=== PATIENT | female | born 1995 | race Hispanic/Latino ===

== ENCOUNTER 2023-07-04 08:13 | Day surgery (SDC) | payer BC ==
[2023-07-02 10:07] VITALS: BMI 40.9
[2023-07-04] MEDS ORDERED: Oxymetazoline HCl 0.05% (30 ML BOT) ONE ×2 (08:34→11:03)
[2023-07-04] MEDS ORDERED: Lidocaine 1% (PF) 30 ML VIAL ONE (11:04)
[2023-07-04] MEDS ORDERED: fentaNYL PF 100 MCG/2 ML SYRINGE ONE ×2 (11:10→11:27)
[2023-07-04] MEDS ORDERED: PROPOFOL 20 ML ONE (11:25)
[2023-07-04] MEDS ORDERED: SUGAMMADEX SODIUM 200 MG/2 ML VIAL ONE (11:31)
[2023-07-04] MEDS ORDERED: Fentanyl 250 MCG/5 ML VIAL ONE (12:02)
[2023-07-04] MEDS ORDERED: HYDROcodone/Acetaminophen 5/325 mg Tablet ONE (12:57)
[2026-07-04] MEDS ORDERED: Rocuronium Bromide 10 MG/ML (10ML VIAL) ONE (11:17)
[2026-07-04] MEDS ORDERED: Ondansetron PF 4 MG/2 ML Vial ONE (11:17)
[2026-07-04] MEDS ORDERED: Dexamethasone 20 MG/5 ML VIAL ONE (11:17)
[2026-07-04] MEDS ORDERED: Ketorolac Tromethamine 30 MG (1 mL) VIAL ONE (11:17)
== END 2023-07-04 13:50 | disposition home or self-care (01) ==
LOC: SDC 08:13
PROVIDERS: ATTEND Otolaryngology Plastic Surgery within the Head & Neck
PROC: 09TV8ZZ Resection of Left Ethmoid Sinus, Via Natural or Artificial Opening Endoscopic (ICD-10-PCS; principal; 2023-07-04)
PROC: 09TL8ZZ Resection of Nasal Turbinate, Via Natural or Artificial Opening Endoscopic (ICD-10-PCS; principal; 2023-07-04)
PROC: 09TU8ZZ Resection of Right Ethmoid Sinus, Via Natural or Artificial Opening Endoscopic (ICD-10-PCS; principal; 2023-07-04)
DX: J34.3 Hypertrophy of nasal turbinates (principal); J32.8 Other chronic sinusitis; J33.0 Polyp of nasal cavity; J30.1 Allergic rhinitis due to pollen; J30.81 Allergic rhinitis due to animal (cat) (dog) hair and dander; J30.89 Other allergic rhinitis; Z79.899 Other long term (current) drug therapy
CPT/HCPCS: J1100; J1885; J2001; J2405; J2704; J3010

== ENCOUNTER 2025-03-10 07:53 | Outpatient (CLI) | payer OTHER ==
[2025-03-10 09:42] LABS: BHCG - Serum Negative (NEGATIVE); Pregs Control Background? CLEAR/WHITE (CLR/WHITE); Pregs Control Bar Appear? YES (CONTROL BAR)
== END 2025-03-10 07:54 | disposition home or self-care (01) ==
LOC: MRI 07:53
PROVIDERS: ATTEND Physician Assistant Medical
DX: K76.0 Fatty (change of) liver, not elsewhere classified (principal); R16.0 Hepatomegaly, not elsewhere classified; R10.11 Right upper quadrant pain; R14.0 Abdominal distension (gaseous); R93.5 Abnormal findings on diagnostic imaging of other abdominal regions, including retroperitoneum
CPT/HCPCS: 36415; 74183; 84703

== ENCOUNTER 2025-03-11 14:11 | Inpatient (IN) | payer OTHER ==
[2025-03-11 15:02] LABS: #Basophils 0.05 10x3/uL (0.0-0.2); #Eosinophils 0.20 10x3/uL (0.0-0.7); #Monocytes 0.68 10x3/uL (0.11-0.59); #Neutrophils 7.56 10x3/uL (1.40-6.50); %Basophils 0.5 % (0.0-1.0); %Eosinophils 1.9 % (0.0-10.0); %Lymphocytes 19.1 % (21.0-51.0); %Monocytes 6.5 % (0.0-10.0); %Neutrophils 71.6 % (42.0-75.0); Hematocrit 40.4 % (36.0-47.0); Hemoglobin 13.2 g/dL (12.0-16.0); Mean Corpuscular Hemoglobin 28.6 pg (27.0-31.0); Mean Corpuscular Volume 87.6 fL (78.0-98.0); Platelet Count 251 10x3/uL (130-400); Red Blood Cell (RBC) Count 4.61 mill/uL (4.20-5.40); White Blood Cell (WBC) Count 10.54 10x3/uL (4.8-10.8)
[2025-03-11 15:18] LABS: BHCG - Serum Negative (NEGATIVE); Pregs Control Background? CLEAR/WHITE (CLR/WHITE); Pregs Control Bar Appear? YES (CONTROL BAR)
[2025-03-11 15:24] LABS: ALT (SGPT) 152 U/L (Less than 34); AST (SGOT) 100 U/L (11-34); Albumin 4.0 g/dL (3.1-4.5); Alkaline Phosphatase 95 U/L (40-110); Anion Gap 15 mmol/L (10-20); BUN (Urea Nitrogen) 8 mg/dL (7.0-18.7); Bilirubin, Total 0.4 mg/dL (0.3-1.2); Calc. Creatinine Clearance 0 mL/min (70-130); Calcium 9.2 mg/dL (7.8-10.44); Carbon Dioxide 28 mmol/L (22-29); Chloride 101 mmol/L (98-107); Globulin 3.5 g/dL (2.4-3.5); Glucose 226 mg/dL (70-105); Potassium 4.0 mmol/L (3.5-5.1); Sodium 140 mmol/L (136-145)
[2025-03-11] MEDS ORDERED: Melatonin 3 MG TAB PO PRN (16:57)
[2025-03-11] MEDS ORDERED: Senokot S 8.6-50 MG TAB PO PRN (16:57)
[2025-03-11] MEDS ORDERED: Vancomycin 1 GM in Premix 1 BAG IVPB SCH (17:00)
[2025-03-11] MEDS ORDERED: diphenhydrAMINE 50 MG/ML VIAL ONE (17:25)
[2025-03-11 18:10] VITALS: BMI 44.6
[2025-03-11] MEDS ORDERED: Pharmacy to Dose: VANCOMYCIN IVPB PRN (18:28)
[2025-03-11] MEDS ORDERED: Vancomycin (BATCH) 1.75 GM Premix IVPB SCH (23:59)
[2025-03-12] MEDS: Vancomycin (BATCH) 2.5 GM in Premix 1 BAG IVPB SCH (01:14)
[2025-03-12 05:36] LABS: #Basophils 0.04 10x3/uL (0.0-0.2); #Eosinophils 0.15 10x3/uL (0.0-0.7); #Monocytes 0.56 10x3/uL (0.11-0.59); #Neutrophils 6.56 10x3/uL (1.40-6.50); %Basophils 0.4 % (0.0-1.0); %Eosinophils 1.5 % (0.0-10.0); %Lymphocytes 24.8 % (21.0-51.0); %Monocytes 5.7 % (0.0-10.0); %Neutrophils 67.2 % (42.0-75.0); Hematocrit 45.1 % (36.0-47.0); Hemoglobin 14.4 g/dL (12.0-16.0); Mean Corpuscular Hemoglobin 28.3 pg (27.0-31.0); Mean Corpuscular Volume 88.6 fL (78.0-98.0); Platelet Count 247 10x3/uL (130-400); Red Blood Cell (RBC) Count 5.09 mill/uL (4.20-5.40); White Blood Cell (WBC) Count 9.77 10x3/uL (4.8-10.8)
[2025-03-12 05:55] LABS: Anion Gap 13 mmol/L (10-20); BUN (Urea Nitrogen) 8 mg/dL (7.0-18.7); Calc. Creatinine Clearance 246 mL/min (70-130); Calcium 9.2 mg/dL (7.8-10.44); Carbon Dioxide 25 mmol/L (22-29); Chloride 104 mmol/L (98-107); Glucose 170 mg/dL (70-105); Potassium 3.7 mmol/L (3.5-5.1); Sodium 138 mmol/L (136-145)
[2025-03-12 06:55] LABS: INR-International Normal Ratio 1.0; PTT 35.0 sec (22.9-36.1); Prothrombin Time 13.3 sec (12.0-14.7)
[2025-03-13 06:32] LABS: #Basophils 0.03 10x3/uL (0.0-0.2); #Eosinophils 0.17 10x3/uL (0.0-0.7); #Monocytes 0.68 10x3/uL (0.11-0.59); #Neutrophils 6.51 10x3/uL (1.40-6.50); %Basophils 0.3 % (0.0-1.0); %Eosinophils 1.7 % (0.0-10.0); %Lymphocytes 24.4 % (21.0-51.0); %Monocytes 6.9 % (0.0-10.0); %Neutrophils 66.4 % (42.0-75.0); Hematocrit 43.5 % (36.0-47.0); Hemoglobin 14.4 g/dL (12.0-16.0); Mean Corpuscular Hemoglobin 28.9 pg (27.0-31.0); Mean Corpuscular Volume 87.2 fL (78.0-98.0); Platelet Count 295 10x3/uL (130-400); Red Blood Cell (RBC) Count 4.99 mill/uL (4.20-5.40); White Blood Cell (WBC) Count 9.81 10x3/uL (4.8-10.8)
[2025-03-13 06:46] LABS: ALT (SGPT) 126 U/L (Less than 34); AST (SGOT) 64 U/L (11-34); Albumin 4.0 g/dL (3.1-4.5); Alkaline Phosphatase 101 U/L (40-110); Anion Gap 16 mmol/L (10-20); BUN (Urea Nitrogen) 11 mg/dL (7.0-18.7); Bilirubin, Total 0.3 mg/dL (0.3-1.2); Calc. Creatinine Clearance 213 mL/min (70-130); Calcium 9.2 mg/dL (7.8-10.44); Carbon Dioxide 22 mmol/L (22-29); Chloride 102 mmol/L (98-107); Globulin 4.0 g/dL (2.4-3.5); Glucose 201 mg/dL (70-105); Potassium 4.1 mmol/L (3.5-5.1); Sodium 136 mmol/L (136-145)
[2025-03-13] MEDS ORDERED: Iopamidol 370 76% 100 ML VIAL ONE (15:41)
[2025-03-13] MEDS ORDERED: Lidocaine 1% w/Epinephrine 1:100K 20 ML VIAL ONE (15:44)
[2025-03-13] MEDS ORDERED: Sodium Bicarbonate 2.5 MEQ/5 ML SDV ONE (15:44)
[2025-03-13] MEDS ORDERED: Ondansetron PF 4 MG/2 ML Vial ONE (15:53)
[2025-03-13] MEDS: HYDROcodone/Acetaminophen 10/325 mg Tablet PO PRN (18:58)
[2025-03-13] MEDS: Ondansetron PF 4 MG/2 ML Vial IVP PRN (22:12)
[2025-03-14 06:45] LABS: #Basophils 0.03 10x3/uL (0.0-0.2); #Eosinophils 0.12 10x3/uL (0.0-0.7); #Monocytes 0.77 10x3/uL (0.11-0.59); #Neutrophils 6.07 10x3/uL (1.40-6.50); %Basophils 0.3 % (0.0-1.0); %Eosinophils 1.3 % (0.0-10.0); %Lymphocytes 22.0 % (21.0-51.0); %Monocytes 8.5 % (0.0-10.0); %Neutrophils 67.3 % (42.0-75.0); Hematocrit 42.4 % (36.0-47.0); Hemoglobin 13.3 g/dL (12.0-16.0); Mean Corpuscular Hemoglobin 28.0 pg (27.0-31.0); Mean Corpuscular Volume 89.3 fL (78.0-98.0); Platelet Count 233 10x3/uL (130-400); Red Blood Cell (RBC) Count 4.75 mill/uL (4.20-5.40); White Blood Cell (WBC) Count 9.02 10x3/uL (4.8-10.8)
[2025-03-14 07:10] LABS: ALT (SGPT) 119 U/L (Less than 34); AST (SGOT) 58 U/L (11-34); Albumin 3.9 g/dL (3.1-4.5); Alkaline Phosphatase 90 U/L (40-110); Anion Gap 12 mmol/L (10-20); BUN (Urea Nitrogen) 10 mg/dL (7.0-18.7); Bilirubin, Total 0.2 mg/dL (0.3-1.2); Calc. Creatinine Clearance 246 mL/min (70-130); Calcium 8.9 mg/dL (7.8-10.44); Carbon Dioxide 26 mmol/L (22-29); Chloride 102 mmol/L (98-107); Globulin 3.6 g/dL (2.4-3.5); Glucose 221 mg/dL (70-105); Potassium 3.9 mmol/L (3.5-5.1); Sodium 136 mmol/L (136-145)
[2025-03-14] MEDS: LISDEXAMFETAMINE DIMESYLATE 30 MG PO SCH (15:30)
[2025-03-15 05:58] LABS: #Basophils 0.04 10x3/uL (0.0-0.2); #Eosinophils 0.18 10x3/uL (0.0-0.7); #Monocytes 0.65 10x3/uL (0.11-0.59); #Neutrophils 5.23 10x3/uL (1.40-6.50); %Basophils 0.5 % (0.0-1.0); %Eosinophils 2.2 % (0.0-10.0); %Lymphocytes 24.2 % (21.0-51.0); %Monocytes 8.0 % (0.0-10.0); %Neutrophils 64.7 % (42.0-75.0); Hematocrit 40.0 % (36.0-47.0); Hemoglobin 12.6 g/dL (12.0-16.0); Mean Corpuscular Hemoglobin 28.4 pg (27.0-31.0); Mean Corpuscular Volume 90.1 fL (78.0-98.0); Platelet Count 239 10x3/uL (130-400); Red Blood Cell (RBC) Count 4.44 mill/uL (4.20-5.40); White Blood Cell (WBC) Count 8.09 10x3/uL (4.8-10.8)
[2025-03-15 06:32] LABS: ALT (SGPT) 88 U/L (Less than 34); AST (SGOT) 40 U/L (11-34); Albumin 3.6 g/dL (3.1-4.5); Alkaline Phosphatase 86 U/L (40-110); Anion Gap 11 mmol/L (10-20); BUN (Urea Nitrogen) 9 mg/dL (7.0-18.7); Bilirubin, Total 0.2 mg/dL (0.3-1.2); Calc. Creatinine Clearance 230 mL/min (70-130); Calcium 8.9 mg/dL (7.8-10.44); Carbon Dioxide 26 mmol/L (22-29); Chloride 104 mmol/L (98-107); Globulin 3.3 g/dL (2.4-3.5); Glucose 150 mg/dL (70-105); Potassium 4.0 mmol/L (3.5-5.1); Sodium 137 mmol/L (136-145)
[2025-03-17] MEDS ORDERED: Lidocaine 1% w/Epinephrine 1:100K 20 ML VIAL ONE (08:32)
[2025-03-17] MEDS ORDERED: Sodium Bicarbonate 2.5 MEQ/5 ML SDV ONE (08:32)
[2025-03-17 12:54] VITALS: BMI 44.6
[2025-03-17] MEDS: Mupirocin 1 GM TUBE NASAL DECOLONIZATION TP SCH (13:41)
[2025-03-17] MEDS: Mupirocin 1 GM TUBE NASAL DECOLOIZATION TP SCH (21:31)
[2025-03-19 19:28] VITALS: BP 117/76; TEMP 98.9
== END 2025-03-19 19:50 | disposition home or self-care (01) | DRG 442 ==
LOC: ERS 14:11 → T4-A 16:28
PROVIDERS: ADMIT Internal Medicine; ATTEND Hospitalist
PROC: 3E03329 Introduction of Other Anti-infective into Peripheral Vein, Percutaneous Approach (ICD-10-PCS; 2025-03-11)
PROC: 0F923ZZ Drainage of Left Lobe Liver, Percutaneous Approach (ICD-10-PCS; principal; 2025-03-13)
DX: K75.0 Abscess of liver (principal); S36.118A Other injury of liver, initial encounter; Z68.41 Body mass index [BMI] 40.0-44.9, adult; R73.03 Prediabetes; F43.10 Post-traumatic stress disorder, unspecified; E66.01 Morbid (severe) obesity due to excess calories; R74.01 Elevation of levels of liver transaminase levels; Z79.84 Long term (current) use of oral hypoglycemic drugs; Z88.8 Allergy status to other drugs, medicaments and biological substances; Z79.899 Other long term (current) drug therapy
CPT/HCPCS: 36415; 36416; 36573; 49405; 74178; 77002; 80048; 80053; 84703; 85025; 85610; 85730; 86141; 87040; 87070; 87205; 89051; 96365; 96367; 96375; C1751; C1894; J1200; J2250; J2543; J3373; Q9967

== ENCOUNTER 2025-03-24 23:46 | Inpatient (IN) | payer OTHER ==
[2025-03-25 00:45] LABS: #Basophils 0.03 10x3/uL (0.0-0.2); #Eosinophils 0.13 10x3/uL (0.0-0.7); #Monocytes 0.47 10x3/uL (0.11-0.59); #Neutrophils 5.45 10x3/uL (1.40-6.50); %Basophils 0.4 % (0.0-1.0); %Eosinophils 1.8 % (0.0-10.0); %Lymphocytes 16.3 % (21.0-51.0); %Monocytes 6.4 % (0.0-10.0); %Neutrophils 74.6 % (42.0-75.0); Hematocrit 42.3 % (36.0-47.0); Hemoglobin 13.9 g/dL (12.0-16.0); Mean Corpuscular Hemoglobin 28.5 pg (27.0-31.0); Mean Corpuscular Volume 86.9 fL (78.0-98.0); Platelet Count 216 10x3/uL (130-400); Red Blood Cell (RBC) Count 4.87 mill/uL (4.20-5.40); White Blood Cell (WBC) Count 7.31 10x3/uL (4.8-10.8)
[2025-03-25 00:58] LABS: INR-International Normal Ratio 1.1; Prothrombin Time 13.9 sec (12.0-14.7)
[2025-03-25 00:59] LABS: ALT (SGPT) 157 U/L (Less than 34); AST (SGOT) 117 U/L (11-34); Albumin 4.0 g/dL (3.1-4.5); Alkaline Phosphatase 99 U/L (40-110); Anion Gap 16 mmol/L (10-20); BUN (Urea Nitrogen) 10 mg/dL (7.0-18.7); Bilirubin, Total 0.2 mg/dL (0.3-1.2); Calc. Creatinine Clearance 0 mL/min (70-130); Calcium 9.2 mg/dL (7.8-10.44); Carbon Dioxide 20 mmol/L (22-29); Chloride 104 mmol/L (98-107); Globulin 4.1 g/dL (2.4-3.5); Glucose 182 mg/dL (70-105); PTT 32.3 sec (22.9-36.1); Potassium 4.0 mmol/L (3.5-5.1); Sodium 136 mmol/L (136-145)
[2025-03-25] MEDS ORDERED: Ibuprofen 800 MG TAB ONE (01:35)
[2025-03-25] MEDS ORDERED: Ondansetron PF 4 MG/2 ML Vial ONE (02:22)
[2025-03-25 02:24] LABS: Bacteria/HPF None Seen HPF (None Seen); CAUTI Indications for Culture Fever or rigors; Glucose, Urine (Dipstick) Normal (Negative); Leukocyte Negative Leu/uL (Negative); Protein, Urine (Dipstick) Negative (Neg-Trace); RBC/HPF None Seen HPF (0-3); Specific Gravity, Urine 1.015 (1.002-1.036); WBC/HPF 0-3 HPF (0-3)
[2025-03-25 02:32] LABS: Urine Culture Reflex No No
[2025-03-25 02:34] LABS: Pregnancy Test - Urine (BHCG) Negative (Negative); Pregu Control Background? CLEAR/WHITE (CLR/WHITE); Pregu Control Bar Appear? YES (CONTROL BAR)
[2025-03-25] MEDS ORDERED: Senokot S 8.6-50 MG TAB PO PRN (06:12)
[2025-03-25] MEDS ORDERED: Calcium Carbonate 500 MG ChewTAB PO PRN (06:12)
[2025-03-25] MEDS ORDERED: Melatonin 3 MG TAB PO PRN (06:12)
[2025-03-25] MEDS ORDERED: Electrolyte Replacement Protocol 1 EACH FS SCH (06:15)
[2025-03-25 08:21] VITALS: BMI 45.0
[2025-03-25] MEDS ORDERED: Iopamidol-370 76% 500 ML MDV (1 ML CHARGE) ONE (12:42)
[2025-03-25] MEDS: Propranolol 60 MG TAB PO SCH (14:46)
[2025-03-25] MEDS: Acetaminophen 325 MG TAB PO PRN (17:04)
[2025-03-25] MEDS: Ondansetron PF 4 MG/2 ML Vial IVP PRN (20:52)
[2025-03-25] MEDS: Acetaminophen 500 MG TAB PO SCH (23:14)
[2025-03-26] MEDS: Acetaminophen/Codeine 30-300mg Tablet PO PRN (03:46)
[2025-03-26] MEDS: Ibuprofen 600 MG TAB PO PRN (05:04)
[2025-03-26 05:28] LABS: #Basophils Less than 0.03 10x3/uL (0.0-0.2); #Eosinophils 0.06 10x3/uL (0.0-0.7); #Monocytes 0.34 10x3/uL (0.11-0.59); #Neutrophils 5.35 10x3/uL (1.40-6.50); %Basophils 0.2 % (0.0-1.0); %Eosinophils 1.0 % (0.0-10.0); %Lymphocytes 7.8 % (21.0-51.0); %Monocytes 5.4 % (0.0-10.0); %Neutrophils 84.8 % (42.0-75.0); Hematocrit 37.3 % (36.0-47.0); Hemoglobin 12.2 g/dL (12.0-16.0); Mean Corpuscular Hemoglobin 28.8 pg (27.0-31.0); Mean Corpuscular Volume 88.0 fL (78.0-98.0); Platelet Count 140 10x3/uL (130-400); Red Blood Cell (RBC) Count 4.24 mill/uL (4.20-5.40); White Blood Cell (WBC) Count 6.30 10x3/uL (4.8-10.8)
[2025-03-26 05:40] LABS: ALT (SGPT) 229 U/L (Less than 34); AST (SGOT) 217 U/L (11-34); Albumin 3.4 g/dL (3.1-4.5); Anion Gap 13 mmol/L (10-20); BUN (Urea Nitrogen) 6 mg/dL (7.0-18.7); Bilirubin, Total 0.2 mg/dL (0.3-1.2); Calc. Creatinine Clearance 271 mL/min (70-130); Calcium 8.3 mg/dL (7.8-10.44); Carbon Dioxide 22 mmol/L (22-29); Chloride 107 mmol/L (98-107); Globulin 3.4 g/dL (2.4-3.5); Glucose 190 mg/dL (70-105); Potassium 4.0 mmol/L (3.5-5.1); Sodium 138 mmol/L (136-145)
[2025-03-26 05:50] LABS: Alkaline Phosphatase 83 U/L (40-110)
[2025-03-26] MEDS: Cholecalciferol 1,000 UNITS (25 MCG) TAB PO SCH (08:27)
[2025-03-26 17:58] LABS: HIV (1/2) Antibody/Antigen NONREACTIVE (NonReactive); HIV 1/2 INDEX 0.05 S/CO (<1.00)
[2025-03-27 08:09] LABS: #Basophils Less than 0.03 10x3/uL (0.0-0.2); #Eosinophils 0.16 10x3/uL (0.0-0.7); #Monocytes 0.43 10x3/uL (0.11-0.59); #Neutrophils 1.54 10x3/uL (1.40-6.50); %Basophils 0.5 % (0.0-1.0); %Eosinophils 4.2 % (0.0-10.0); %Lymphocytes 42.6 % (21.0-51.0); %Monocytes 11.4 % (0.0-10.0); %Neutrophils 40.8 % (42.0-75.0); Hematocrit 36.9 % (36.0-47.0); Hemoglobin 12.0 g/dL (12.0-16.0); Mean Corpuscular Hemoglobin 28.8 pg (27.0-31.0); Mean Corpuscular Volume 88.7 fL (78.0-98.0); Platelet Count 128 10x3/uL (130-400); Red Blood Cell (RBC) Count 4.16 mill/uL (4.20-5.40); White Blood Cell (WBC) Count 3.78 10x3/uL (4.8-10.8)
[2025-03-27] MEDS ORDERED: Sodium Bicarbonate 2.5 MEQ/5 ML SDV ONE (08:34)
[2025-03-27] MEDS ORDERED: Lidocaine 1% w/Epinephrine 1:100K 20 ML VIAL ONE (08:34)
[2025-03-27 09:25] LABS: ALT (SGPT) 194 U/L (Less than 34); AST (SGOT) 131 U/L (11-34); Albumin 3.1 g/dL (3.1-4.5); Alkaline Phosphatase 75 U/L (40-110); Anion Gap 12 mmol/L (10-20); BUN (Urea Nitrogen) 6 mg/dL (7.0-18.7); Bilirubin, Total 0.1 mg/dL (0.3-1.2); Calc. Creatinine Clearance 277 mL/min (70-130); Calcium 8.3 mg/dL (7.8-10.44); Carbon Dioxide 26 mmol/L (22-29); Chloride 108 mmol/L (98-107); Globulin 3.3 g/dL (2.4-3.5); Glucose 168 mg/dL (70-105); Potassium 3.9 mmol/L (3.5-5.1); Sodium 142 mmol/L (136-145)
[2025-03-27] MEDS: Lisdexamfetamine Dimesylate [Vyvanse] 30 MG Capsule PO SCH (13:48)
[2025-03-28] MEDS: Activase 2 MG VIAL CATH SCH (05:04)
[2025-03-30 06:26] LABS: ALT (SGPT) 192 U/L (Less than 34); AST (SGOT) 141 U/L (11-34); Albumin 3.4 g/dL (3.1-4.5); Alkaline Phosphatase 80 U/L (40-110); Anion Gap 11 mmol/L (10-20); BUN (Urea Nitrogen) 8 mg/dL (7.0-18.7); Bilirubin, Total 0.2 mg/dL (0.3-1.2); Calc. Creatinine Clearance 306 mL/min (70-130); Calcium 8.6 mg/dL (7.8-10.44); Carbon Dioxide 26 mmol/L (22-29); Chloride 106 mmol/L (98-107); Globulin 3.4 g/dL (2.4-3.5); Glucose 174 mg/dL (70-105); Potassium 3.4 mmol/L (3.5-5.1); Sodium 140 mmol/L (136-145)
[2025-03-30] MEDS: Enoxaparin 40 MG (0.4 mL) SYRINGE SC SCH (11:19)
[2025-03-31] MEDS: Enoxaparin 40 MG (0.4 mL) SYRINGE SC SCH (09:06)
[2025-03-31 09:23] LABS: #Basophils 0.03 10x3/uL (0.0-0.2); #Eosinophils 0.11 10x3/uL (0.0-0.7); #Monocytes 0.48 10x3/uL (0.11-0.59); #Neutrophils 4.30 10x3/uL (1.40-6.50); %Basophils 0.4 % (0.0-1.0); %Eosinophils 1.6 % (0.0-10.0); %Lymphocytes 27.9 % (21.0-51.0); %Monocytes 7.0 % (0.0-10.0); %Neutrophils 62.7 % (42.0-75.0); Hematocrit 38.8 % (36.0-47.0); Hemoglobin 12.7 g/dL (12.0-16.0); Mean Corpuscular Hemoglobin 28.9 pg (27.0-31.0); Mean Corpuscular Volume 88.4 fL (78.0-98.0); Platelet Count 211 10x3/uL (130-400); Red Blood Cell (RBC) Count 4.39 mill/uL (4.20-5.40); White Blood Cell (WBC) Count 6.87 10x3/uL (4.8-10.8)
[2025-03-31 14:51] VITALS: BP 123/82; TEMP 97.9
== END 2025-03-31 13:04 | disposition home or self-care (01) | DRG 871 ==
LOC: ERS 23:46 → OBS 03-25 05:55 → T4-B 03-25 06:12 → OBS 03-25 08:17
PROVIDERS: ADMIT Internal Medicine; ATTEND Hospitalist
PROC: 3E03329 Introduction of Other Anti-infective into Peripheral Vein, Percutaneous Approach (ICD-10-PCS; principal; 2025-03-25)
PROC: 0FD13ZX Extraction of Right Lobe Liver, Percutaneous Approach, Diagnostic (ICD-10-PCS; 2025-03-27)
DX: A41.9 Sepsis, unspecified organism (principal); K75.0 Abscess of liver; Z68.41 Body mass index [BMI] 40.0-44.9, adult; G90.A Postural orthostatic tachycardia syndrome [POTS]; R73.03 Prediabetes; F10.90 Alcohol use, unspecified, uncomplicated; F41.9 Anxiety disorder, unspecified; B99.9 Unspecified infectious disease; R74.01 Elevation of levels of liver transaminase levels; E66.01 Morbid (severe) obesity due to excess calories; F32.A Depression, unspecified; Z88.1 Allergy status to other antibiotic agents; Z88.8 Allergy status to other drugs, medicaments and biological substances; Z79.899 Other long term (current) drug therapy
CPT/HCPCS: 20206; 36415; 71045; 71275; 74177; 74183; 76376; 76700; 76942; 80053; 81001; 81025; 82105; 82550; 83605; 84145; 84484; 85025; 85610; 85730; 86141; 86480; 86753; 87040; 87389; 87428; 88112; 88307; 88333; 88334; 93005; 93306; 96365; 99152; 99153; J0878; J2185; J2248; J2250; J2543; J2997; J7042; Q9967; S8037

== ENCOUNTER 2025-05-08 09:44 | Outpatient (CLI) | payer OTHER | END 2025-05-08 09:45 | disposition home or self-care (01) | LOC: MRI 09:44 | PROVIDERS: ATTEND Physician Assistant Medical | DX: K76.0 Fatty (change of) liver, not elsewhere classified (principal); R16.0 Hepatomegaly, not elsewhere classified; K76.89 Other specified diseases of liver | CPT/HCPCS: 74183; 76376 ==